=== PATIENT | male | born 1940 | race Caucasian/White ===

== ENCOUNTER 2016-09-02 20:35 | Emergency (ER) | payer OTHER, MEDICAID ==
[~2016-09-02] VITALS: Ht 170.2 cm; Wt 63.5 kg
[~2016-09-02 20:35] MED LIST: INSU10SU8 SUBQ
--- NOTE | 2016-09-02 20:35 | NUR ---
Patient was BIBA at this time.
[2016-09-02 20:40] VITALS: BP 130/58
--- NOTE | 2016-09-02 20:44 | NUR ---
Dr. Alas evaluating patient.
[2016-09-02] MEDS ORDERED: NACL 0.9% 2,000 ML IV ONE (20:55)
[2016-09-02 21:25] LABS: BASOPHILS # (AUTO) 0.1 K/uL (0.00-0.22); BASOPHILS % (AUTO) 1.1 % (0.0-2.0); EOSINOPHILS # (AUTO) 0.1 K/uL (0-0.4); EOSINOPHILS % (AUTO) 1.4 % (0.0-4.0); HEMATOCRIT 42.2 % (36-52); HEMOGLOBIN 13.6 g/dL (12.0-18.0); LYMPHOCYTES # (AUTO) 1.2 K/uL (2.0-11.5); LYMPHOCYTES % (AUTO) 12.6 % (20.5-51.1); MEAN CORPUSCULAR HEMOGLOBIN 29 pg (27-31); MEAN CORPUSCULAR HGB CONC 32 g/dL (33-37); MEAN CORPUSCULAR VOLUME 91 fL (80-94); MONOCYTES % (AUTO) 10.5 % (1.7-9.3); NEUTROPHILS # (AUTO) 7.1 K/uL (1.8-7.7); NEUTROPHILS % (AUTO) 74.4 % (42.2-75.2); PLATELET COUNT (AUTO) 249 K/uL (140-450); RED BLOOD CELL COUNT(AUTO) 4.65 MIL/uL (4.20-6.10); RED CELL DISTRIBUTION WIDTH 11.6 % (11.6-13.7); WHITE BLOOD COUNT (AUTO) 9.5 K/uL (4.8-10.8)
--- NOTE | 2016-09-02 21:30 | NUR ---
76Y/M PT. BIBA TO ED WITH C/O HIGH BS X 1 DAY. PT. HX. DM ,BS HIGH. PATIENT PRESENTS TO ED WITH . DENIES N/V/D; SKIN IS PINK/WARM/DRY; AAOX4 , AMBULATE WITH WALKER; LUNGS CLEAR BL; RR 28-30 BPM, O2 SAT ROOM AIR 97%. HR EVEN AND REGULAR; PT DENIES ANY FEVER, CP, SOB, OR COUGH AT THIS TIME; PATIENT STATES PAIN OF 0/10 AT THIS TIME; VS, [place]; PATIENT POSITIONED FOR COMFORT; HOB ELEVATED; BEDRAILS UP X2; BED DOWN. ER MD MADE AWARE OF PT STATUS.
[2016-09-02 21:43] LABS: ALANINE AMINOTRANSFERASE 45 U/L (12-78); ALBUMIN 3.6 g/dL (3.4-5.0); ALKALINE PHOSPHATASE 220 U/L (46-116); ASPARTATE AMINOTRANSFERASE 26 U/L (15-37); CALCIUM 9.7 mg/dL (8.5-10.1); CARBON DIOXIDE 29.5 mmol/L (21-32); CHLORIDE 94 mmol/L (98-107); CREATININE 1.6 mg/dL (0.6-1.3); LIPASE 59 U/L (73-393); MAGNESIUM 2.3 mg/dL (1.8-2.4); POTASSIUM 4.5 mmol/L (3.5-5.1); SODIUM SERUM 133 mmol/L (136-145); TOTAL BILIRUBIN 0.7 mg/dL (0.0-1.0); UREA NITROGEN, BLOOD 23 mg/dL (7-18)
--- NOTE | 2016-09-02 21:43 | NUR ---
Patient taken to bed 05 via wheelchair per tech.
[2016-09-02 21:44] LABS: GLUCOSE 551 mg/dL (74-106)
[2016-09-02] MEDS ORDERED: INSULIN HUMAN REGULAR 100 UNITS/ML 10 ML VIAL IVP ONE (22:35)
[2016-09-02 23:27] LABS: APPEARANCE,URINE CLEAR (CLEAR); BILIRUBIN,URINE NEGATIVE (NEGATIVE); BLOOD, URINE NEGATIVE (NEGATIVE); COLOR,URINE YELLOW (YELLOW); LEUKOCYTE ESTERASE ,URINE NEGATIVE (NEGATIVE); NITRITE, URINE NEGATIVE (NEGATIVE); PROTEIN,URINE NEGATIVE (NEGATIVE); UGLUCOSE 3+ (NEGATIVE); UROBILINOGEN,URINE 0.2 EU/dL (0.2 - 1)
--- NOTE | 2016-09-02 23:30 | NUR ---
Patient discharged with v/s stable. Written and verbal after care instructions given and explained. Patient verbalized understanding. Ambulatory with steady gait. All questions addressed prior to discharge. Advised to follow up with PMD.
[2016-09-02 23:40] LABS: BACTERIA,URINE OCCASSIONAL /HPF (None Seen); RBC,URINE 0-5 (RARE) /HPF (0-5); SQUAMOUS EPITHELIAL CELL,UR 0-3 (FEW) /LPF (0-3 (FEW)); WBC,URINE 0-5 (RARE) /HPF (0-5)
[2016-09-02 23:44] VITALS: BP 136/63
[2016-09-03 05:31] LABS: BLOOD GAS PCO2 38.4 mmHg (20-50); BLOOD GAS PH 7.434 (7.35-7.45)
[2016-09-03 05:32] LABS: BLOOD GAS PO2 30.4 mmHg
[2016-09-03 05:33] LABS: BLOOD GAS BASE EXCESS 1.1 mmol/L (-2.0-2.0); BLOOD GAS HCO3 25.1 mmol/L
[2016-09-03 05:36] LABS: FRACTIONATED INSPIRED OXYGEN 0.21 % (0.21-100.00)
== END 2016-09-02 23:30 | disposition home or self-care (01) ==
LOC: MED 20:35
DX: E11.65 Type 2 diabetes mellitus with hyperglycemia (principal); I10 Essential (primary) hypertension
CPT/HCPCS: 36415; 80053; 81001; 82009; 82948; 83690; 83735; 84484; 85025; 93005; 93971; 96361; 96374; 99285; J1815; J7030; Q0092